=== PATIENT | female | born 1980 | race Caucasian/White ===

== ENCOUNTER → 2016-05-25 | Outpatient (CLI) | payer OTHER ==
--- NOTE | 2016-05-25 10:05 | CT ---
EXAMINATION TYPE: CT sinus wo con DATE OF EXAM: 05/25/2016 9:44 AM COMPARISON: NONE HISTORY: sinus congestion CT DLP: 610.[address] of the paranasal sinuses was performed in the axial and coronal planes. Bone and soft tissue settings are submitted. The paranasal sinuses demonstrate normal aeration and development. The paranasal sinuses are free of mucosal thickening or air fluid level. The osteal meatal units are patent bilaterally. The nasal septum is deviated from left to right. No bony destructive changes are seen within the field of view. IMPRESSION: Nasal septal deviation.
== END | disposition home or self-care (01) ==
LOC: RADCTMAIN 09:24
PROVIDERS: ATTEND Otolaryngology
DX: J34.2 Deviated nasal septum (principal); S09.93XA Unspecified injury of face, initial encounter; J32.9 Chronic sinusitis, unspecified
CPT/HCPCS: 70486

== ENCOUNTER → 2016-06-15 | Outpatient (CLI) | payer OTHER ==
--- NOTE | 2016-06-15 10:54 | USB ---
Reason for exam: additional evaluation requested from prior study. History: Family history of breast cancer in paternal cousin at age 45. Physical Findings: Nurse Summary: bilateral nipples inverted (nurse kp). US Breast BILAT Right breast ultrasound includes all four quadrants, the retroareolar region and axilla. Finding demonstrates no cystic or solid lesion seen. Left breast ultrasound includes all four quadrants, the retroareolar region and axilla. Finding demonstrates no cystic or solid lesion seen. These results were verbally communicated with the patient and result sheet given to the patient on 06/15/16. ASSESSMENT: Negative, BI-RAD 1 RECOMMENDATION: Routine screening mammogram of both breasts at age 40. (unless clinical indication to start sooner) Manage patient on a clinical basis (bilateral breast pain).
== END ==
LOC: RADUSWWP 09:42
PROVIDERS: ATTEND Surgery
DX: R92.8 Other abnormal and inconclusive findings on diagnostic imaging of breast (principal)

== ENCOUNTER 2016-07-23 11:03 | Day surgery (SDC) | payer OTHER ==
[2016-07-17 15:00] VITALS: BMI 24.3
[~2016-07-23 11:03] MED LIST: ACETAMINOPHEN TAB 500 MG TAB PO ONE; DEXAMETHASONE SOD PHOSPHATE 10 MG/ML 1 ML VIAL IV ONE; DEXAMETHASONE SOD PHOSPHATE 4 MG/ML 1 ML VIAL IV ONE; FAMOTIDINE 20 MG/2 ML VIAL IV ONE; HYDROmorphone 1 MG/ML 1 ML SYRINGE IVP PRN; LACTATED RINGERS 1,000 ML IV SCH; LIDOCAINE 1% 20 ML VIAL (10MG/ML) FOR IV START INTRADERMA PRN; MIDAZOLAM 2 MG/2 ML VIAL IV PRN; ONDANSETRON 4 MG/2 ML VIAL IVP ONE; SCOPOLAMINE 1.5MG/72HR PATCH TRANSDERM ONE; ceFAZolin 2 GM in SODIUM CHLORIDE 0.9% 100 ML IVPB ONE
[2016-07-23] MEDS: OXYMETAZOLINE 0.05% NASL SPRAY 15 ML NASAL ONE ×5 (11:30→11:50)
[2016-07-23] MEDS ORDERED: LACTATED RINGERS 1,000 ML IV ONE ×3 (11:35→17:02)
[2016-07-23] MEDS ORDERED: OXYMETAZOLINE 0.05% NASL SPRAY 15 ML ONE (13:59)
[2016-07-23] MEDS ORDERED: SUCCINYLCHOLINE CHLORIDE 100 MG/5 ML SYR IV ONE (14:28)
[2016-07-23] MEDS ORDERED: MORPHINE SULFATE 10 MG/ML SYRINGE ONE (14:28)
[2016-07-23] MEDS ORDERED: LIDOCAINE 1% INJ 10MG/ML (20 ML MDV) ONE (14:28)
[2016-07-23] MEDS ORDERED: ROCURONIUM BROMIDE 10 MG/ML 10 ML VIAL IV ONE (14:28)
[2016-07-23] MEDS ORDERED: PROPOFOL 10 MG/ML 20 ML VIAL IV ONE (14:28)
[2016-07-23] MEDS ORDERED: MIDAZOLAM 2 MG/2 ML VIAL ONE (14:28)
[2016-07-23] MEDS ORDERED: fentaNYL (PF) 50 MCG/ML 2 ML AMP ONE (14:28)
[2016-07-23] MEDS ORDERED: BACITRACIN 500 UNIT/GM OINT 28.4 GM TUBE TOPICAL ONE (15:09)
[2016-07-23] MEDS ORDERED: LIDOCAINE 1%-EPI 1:100,000 20 ML VIAL SQ ONE (15:09)
[2016-07-23] MEDS ORDERED: BUPIVACAIN-EPI 0.5%-1:200,000 30 ML VIAL SQ ONE (15:10)
[2016-07-23] MEDS ORDERED: EPINEPHrine 1 MG/ML (MDV) 30 ML VIAL IRRIGATION ONE (15:10)
[2016-07-23] MEDS ORDERED: FLUORESCEIN STRIPS 1 MG STRIP MISCELLANE ONE (15:10)
[2016-07-23] MEDS ORDERED: METOCLOPRAMIDE 5 MG/ML 2 ML VIAL IVP ONE (17:15)
[2016-07-23 17:28] VITALS: TEMP 97.8
[2016-07-23] MEDS ORDERED: ONDANSETRON 4 MG/2 ML VIAL IVP ONE (17:31)
--- NOTE | 2016-07-23 17:41 | P.OP ---
Preoperative Diagnosis: Postoperative Diagnosis: Procedure(s) Performed: Implants: Indications for Procedure: This patient has a history of a nasal bone fracture that she sustained when a tree branch hit her in the face while horseback riding years ago. Was never corrected and she's had chronic nasal congestion for many years she has a large dorsal hump and a deviation to the left. She was found have a polyp or cyst of the left frontal sinus and has been having issues with chronic sinusitis. After long discussion she elected to proceed forward with this septoplasty rhinoplasty turbinate reduction for better breathing and a frontal sinusotomy with removal of a left frontal sinus polyp. Operative Findings: Patient had a large dorsal hump callus formation from her fractured left nasal deviation and a right septal deviation that was obstructive large obstructive inferior turbinates and blockage of the frontal sinuses with polyp formation. Description of Procedure: This patient was taken to the operative room and placed in the supine position. A general inhalation anesthetic was administered to the patient by the department of anesthesia with a functioning IV line in place. The patient was monitored throughout the entire case by the department of anesthesia. The eyes were taped shut for protection. The patient was placed in a slight reverse Trendelenburg position. The patient had previously utilize Afrin nasal spray preoperatively. The nose was evaluated and the septum lateral nasal wall and inferior turbinates were injected with lidocaine 1% with epinephrine 1 100,000 bilaterally. Approximately 10 minutes were allowed wait for full vasoconstrictive effects to take place. At this point a caudal incision was made over the caudal portion of the left septum down to the mucoperichondrium. A mucoperichondrial flap was elevated on the left side and dissection was carried with use of tunnels posteriorly. We then made a crossover incision through the cartilage to the contralateral side and for the mucoperichondrial flap development was performed to the extent of visualization on the contralateral side. After the cartilage was freed with use of several crosshatching incisions and removal of some redundant strips of septal cartilage, the septum was straightened and placed back in the midline. The septum was sutured fixated to the vomerian groove. Excellent straightening occurred and the septum was visibly straight. Incision was closed with a 40 rapid Vicryl. We utilized a running nonlocking fashion for closure of the incision. A quilting stitch was used to reapproximate the septal flaps with use of a 40 rapid Vicryl. Intranasal splints were inserted and fixated at the end of the case. We utilized Vasquez nasal splints. There will be removed and the patient returns to the office. Attention was then paid to the inferior turbinates. The bilateral inferior turbinates were hypertrophic and obstructive. We entered the anterior portion of the inferior turbinates with use of a microdebrider. We remove bone and submucosal elements with use of a microdebrider bilaterally. The inferior turbinates underwent a submucosal resection with removal of submucosal tissue and bone. We obtained a much better and normal in size for breathing. The inferior turbinates were then outfractured and compressed with a MathZee nasal elevator. Excellent airway was obtained and was symmetric bilaterally. No bleeding was encountered. Attention was paid to the frontal sinuses where we inserted the endoscopic sinus balloon for dilatation on the left side. Nasal frontal duct was dilated on the left side we then entered the frontal sinus and found polypoid material which we removed. We explored the left frontal sinus and we removed diseased tissue and polyps from the left frontal sinus. Xerogel was inserted. Attention was then paid to the external nose which was previously prepped and draped in usual fashion. We injected the nose around the periphery septum columella margin with lidocaine 1% with epinephrine 1 100,000 and Marcaine. We made a stairstep columellar incision with a 15 blade and extended this along the marginal rim incision. The skin was elevated off the nasal tip and then off the nasal dorsum. The nasal dorsum and nasal tip was exposed. We then with use of a cold handle rasp rasped down the very large nasal dorsal hump. This was callus formation that we noted. The nasal dorsum was contoured were normal anesthetic side profile with removal of both bone and dorsal cartilage and callus. This was agreed to before the surgery. Prior to surgery we did go over the change in appearance and the removal of the dorsal callus and cartilage to bring this back to a pre-fracture state. After the dorsum was recontoured and the callous was removed medial and lateral osteotomies were performed. The nasal bones were infractured and the opening over the nasal dorsum i.e. the box nose deformity was corrected. The nose was then taped and casted in usual fashion. Again we have intranasal splints inserted. The patient tolerated this procedure well and follow-up will be in the office in 1 week. To summarize the septum was straightened this turbinates underwent a outfracture compression and submucosal resection. We did a open rhinoplasty with both medial and lateral osteotomies and removal of dorsal hump with callus formation. We then opened up the left frontal sinus explored the left frontal sinus and removed polyps. The patient tolerated this well and follow-up will be in the office in one week the patient is to contact me if any from should arise.
[2016-07-23 18:19] VITALS: RESP 18
[2016-07-23 18:43] VITALS: BP 112/72; PULSE 80
--- NOTE | 2016-08-20 09:56 | OP ---
DATE OF SERVICE: 07/23/2016 OPERATIVE NOTE ADDENDUM: PREOPERATIVE DIAGNOSES: 1. Deviated nasal septum. 2. Hypertrophy of the bilateral nasal turbinates with obstruction. 3. Chronic sinusitis. 4. External nasal deformity acquired. 5. Left frontal sinus polyp. POSTOPERATIVE DIAGNOSES: 1. Deviated nasal septum. 2. Hypertrophy of the bilateral nasal turbinates with obstruction. 3. Chronic sinusitis. 4. External nasal deformity acquired. 5. Left frontal sinus polyp. OPERATION: 1. Septoplasty. 2. Bilateral outfracture, compression and submucosal resection of the inferior turbinates. 3. Frontal sinusotomy with polypectomy. 4. Open rhinoplasty. ANESTHESIA: General. ESTIMATED BLOOD LOSS: Minimum. SPECIMENS REMOVED: COMPLICATIONS: None. CONDITION: Excellent.
== END 2016-07-23 18:48 | disposition home or self-care (01) ==
LOC: OR 11:03
PROVIDERS: ATTEND Otolaryngology
DX: J34.2 Deviated nasal septum (principal); J34.3 Hypertrophy of nasal turbinates; M95.0 Acquired deformity of nose; J32.9 Chronic sinusitis, unspecified; J33.8 Other polyp of sinus
CPT/HCPCS: 81025; 88305; 88300; 30520; 30140; 31276; 30400; J0171; J2250; J1100; J2765; J2270; J0690; J2405; J2001; J3010; J1170; J0330; J2704

== ENCOUNTER → 2017-07-02 | Outpatient (CLI) | payer OTHER ==
--- NOTE | 2017-07-02 07:25 | MR ---
EXAMINATION TYPE: MR shoulder LT wo con DATE OF EXAM: 07/02/2017 7:22 AM COMPARISON: NONE HISTORY: Pain in left shoulder TECHNIQUE: Multiplanar multispin echo imaging of the left shoulder was performed. FINDINGS: Rotator cuff : Mild thickening of the supraspinatus tendon may reflect chronic tendinopathy. There is no complete or bursal/articular sided partial rotator cuff tear. The subscapularis constituent of th e rotator cuff is intact. Bursa: No bursal effusion or thickening is seen. Musculature: There is no muscular tear, contusion, or atrophy. Acromioclavicular joint : There are mild degenerative changes of the acromioclavicular joint. There is no anterior or lateral acromial downsloping. Osseous structures : There are no fractures or regions of abnormal bone marrow signal intensity. Long biceps tendon : The biceps tendon is normally situated within the bicipital groove. No complete or partial biceps tendon tear is present. Glenohumeral Joint fluid : There is no glenohumeral joint effusion. Cartilage and Bone : No focal hyaline cartilage defects are noted. No Hill-Sachs, reverse Hill-Sachs, or bony Bankart lesions are seen. Labrum : There are no SLAP or soft tissue Bankart lesions. No paralabral cysts are seen. OTHER FINDINGS : none IMPRESSION: 1. Mild chronic tendinopathy supraspinatus tendon without evidence for partial or complete tear.
== END | disposition home or self-care (01) ==
LOC: RADMRIMAIN 06:44
PROVIDERS: ATTEND Family Medicine
DX: M75.82 Other shoulder lesions, left shoulder (principal); M25.512 Pain in left shoulder

== ENCOUNTER → 2019-04-04 | Outpatient (CLI) | payer OTHER ==
[2019-04-04 09:52] LABS: Basophils % (A) 1 %; Eosinophils # (A) 0.1 k/uL (0-0.7); Eosinophils % (A) 2 %; HCT 40.7 % (34.0-46.0); HGB 13.2 gm/dL (11.4-16.0); Lymphocytes # (A) 1.8 k/uL (1.0-4.8); Lymphocytes % (A) 42 %; MCH 30.1 pg (25.0-35.0); MCHC 32.3 g/dL (31.0-37.0); MCV 93.3 fL (80.0-100.0); Mean Platelet Volume 7.8; Monocytes # (A) 0.2 k/uL (0-1.0); Monocytes % (A) 6 %; Neutrophils # (A) 2.1 k/uL (1.3-7.7); Neutrophils % (A) 47 %; Platelet Count 218 k/uL (150-450); RBC 4.37 m/uL (3.80-5.40); RDW 12.1 % (11.5-15.5); WBC 4.3 k/uL (3.8-10.6)
[2019-04-04 12:34] LABS: Erythrocyte Sedimentation Rate 6 mm/hr (0-20)
[2019-04-04 16:58] LABS: LDL Cholesterol, Direct 91.3 mg/dL (0.0-129.0)
[2019-04-04 18:28] LABS: African American GFR (CKD) 127.4 (60.0-200.0); Albumin 4.4 g/dL (3.80-4.90); Albumin/Globulin Ratio 2.1 (1.60-3.17); Anion Gap 10.6 mmol/L (4.00-12.00); BUN/Creat Ratio 17.14 Ratio (12.00-20.00); Calcium 9.3 mg/dL (8.7-10.3); Carbon Dioxide 25.4 mmol/L (21.6-31.8); Chol/HDL Ratio 2.18; Globulin 2.1 g/dL (1.6-3.3); Non-African American GFR(CKD) 109.9 (60.0-200.0); Potassium 4.3 mmol/L (3.5-5.5); Total Bilirubin 0.7 mg/dL (0.2-1.2); Total Protein 6.5 g/dL (6.2-8.2)
[2019-04-04 18:35] LABS: T4, Free (Free Thyroxine) 1.2 ng/dL (0.80-1.80)
== END | disposition home or self-care (01) ==
LOC: LABWHC1 08:41
PROVIDERS: ATTEND Family Medicine
DX: L65.9 Nonscarring hair loss, unspecified (principal); M25.50 Pain in unspecified joint
CPT/HCPCS: 36415; 80053; 80061; 82607; 83721; 84439; 84443; 85025; 85652; 86038

== ENCOUNTER → 2022-07-10 | Outpatient (CLI) | payer BC ==
--- NOTE | 2022-07-13 19:02 | MM ---
Reason for Exam: Screening (asymptomatic). Last mammogram was performed 7 year(s) and 0 month(s) ago. Patient History: Menarche at age 13. First Full-Term at age 21. Premenopausal. Paternal cousin had breast cancer, age 45. Risk Values: Celia 5 year model risk: 0.5%. NCI Lifetime model risk: 9.0%. Prior Study Comparison: 07/12/2015 Bilateral Diagnostic Mammogram, [facility]. Tissue Density: The breast tissue is heterogeneously dense. This may lower the sensitivity of mammography. Findings: Analyzed By CAD. There is no suspicious group of microcalcifications or new suspicious mass in either breast. Overall Assessment: Benign, BI-RAD 2 Management: Screening Mammogram of both breasts in 1 year. . Patient should continue monthly self-breast exams. A clinical breast exam by your physician is recommended on an annual basis. This exam should not preclude additional follow-up of suspicious palpable abnormalities. Note on Celia scores and lifetime risk: 1. A Celia score greater than 3% is considered moderate risk. If this is the case, consider specialist referral to assess eligibility for a risk reducing agent. 2. If overall lifetime risk for the development of breast cancer is 20% or higher, the patient may qualify for future screening with alternating mammogram and breast MRI. Electronically signed and approved by: Jyoti Farris M.D. Radiologist
== END | disposition home or self-care (01) ==
LOC: RADMAMWWP 09:22
PROVIDERS: ATTEND Obstetrics & Gynecology
DX: Z12.31 Encounter for screening mammogram for malignant neoplasm of breast (principal); Z80.3 Family history of malignant neoplasm of breast
CPT/HCPCS: 77063; 77067

== ENCOUNTER → 2023-02-01 | Outpatient (CLI) | payer BC ==
[2023-02-01 15:47] LABS: Blood Urea Nitrogen 8.4 mg/dL (9.0-27.0); Glucose 91 mg/dL (70-110)
[2023-02-01 15:48] LABS: Calcium 9.5 mg/dL (8.7-10.3); Carbon Dioxide 25.1 mmol/L (21.6-31.8); Chloride 105 mmol/L (96-109); Potassium 4.2 mmol/L (3.5-5.5); Sodium 143 mmol/L (135-145)
[2023-02-01 16:35] LABS: Basophils # (A) 0.04 X 10*3/uL (0.00-0.10); Basophils % (A) 0.7 %; Eosinophils # (A) 0.07 X 10*3/uL (0.04-0.35); Eosinophils % (A) 1.3 %; HCT 38.8 % (37.2-46.3); HGB 12.8 g/dL (12.0-15.0); Lymphocytes # (A) 1.87 X 10*3/uL (0.90-5.00); MCH 30.8 pg (27.0-32.0); MCV 93.3 FL (80.0-97.0); Mean Platelet Volume 10.6 FL (9.5-12.2); Monocytes # (A) 0.55 X 10*3/uL (0.20-1.00); Monocytes % (A) 10.3 %; NRBC Per 100 WBC 0 X 10*3/uL (0.00-0.01); Neutrophils % (A) 52.5 %; Platelet Count 225 X 10*3/uL (140-440); RBC 4.16 X 10*6/uL (4.10-5.20); RDW 12.5 % (11.5-14.5); WBC 5.34 X 10*3/uL (4.50-10.00)
== END | disposition home or self-care (01) ==
LOC: LABPAT 09:34
PROVIDERS: ATTEND Obstetrics & Gynecology
DX: Z01.812 Encounter for preprocedural laboratory examination (principal)
CPT/HCPCS: 80048; 85025; 86850; 86900; 86901

== ENCOUNTER 2023-02-08 05:33 | Day surgery (SDC) | payer BC ==
[2023-02-04 10:37] VITALS: BMI 23.5
--- NOTE | 2023-02-07 09:06 | P.HPOB ---
History of Present Illness H&P Date: 02/07/23 Chief Complaint: Dysmenorrhea, post endometrial ablation syndrome This is a 42 y.o. female, 3, para 2, who presents for total laparoscopic hysterectomy with bilateral salpingectomy and diagnostic cystoscopy, possible total abdominal hysterectomy with bilateral salpingo-ooporectomy due to dysmenorrhea and post endometrial ablation syndrome. She's not bleeding heavy, but she's bleeding almost all the time through the month and it's painful. This has been going on for a few years now. Pelvic ultrasound showed uterus measuring 9.2 x 5.3 x 3.9 cm with a split endometrium up to 5 mm on each side. Simple cysts noted on both ovaries. OB Hx: . History of 2 vaginal deliveries and 1 miscarriage. 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 She had a tubal ligation. Social Hx: . 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 Review of Systems Constitutional: Denies chills, Denies fever Eyes: denies blurred vision, denies pain Ears, nose, mouth and throat: Denies headache, Denies sore throat Cardiovascular: Denies chest pain, Denies shortness of breath Respiratory: Denies cough Gastrointestinal: Reports abdominal pain, Reports bloating, Reports change in bowel habits, Denies diarrhea, Denies nausea, Denies vomiting Genitourinary: Reports abnormal vaginal bleeding, Reports dysmenorrhea, Reports pelvic pain Menstruation: Reports menses 8 or > days, Reports menses variable, Denies period heavy Musculoskeletal: Reports low back pain, Reports myalgias Integumentary: Denies pruritus, Denies rash Neurological: Denies numbness, Denies weakness Psychiatric: Reports irritability, Denies anxiety, Denies depression Endocrine: Denies fatigue, Denies weight change Past Medical History Past Medical History: Osteoarthritis (OA) Additional Past Medical History / Comment(s): states painful & frequent menstrual periods. History of Any Multi-Drug Resistant Organisms: None Reported Past Surgical History: Tubal Ligation, Uterine Ablation Additional Past Surgical History / Comment(s): D & C, nasal surgery for deviated septum. wisdom teeth removed with anesthesia Past Anesthesia/Blood Transfusion Reactions: No Reported Reaction Past Psychological History: No Psychological Hx Reported Smoking Status: Former smoker Past Alcohol Use History: Occasional Additional Past Alcohol Use History / Comment(s): QUIT SMOKING 2006. STATES ALCOHOL ON WEEKENDS Past Drug Use History: None Reported - Past Family History Mother Family Medical History: Coronary Artery Disease (CAD) Medications and Allergies Home Medications Medication Instructions Recorded Confirmed Type No Known Home Medications 02/04/23 02/08/23 History Allergies Allergy/AdvReac Type Severity Reaction Status Date / Time No Known Allergies Allergy Verified 02/08/23 05:56 Exam Osteopathic Statement: *. No significant issues noted on an osteopathic structural exam other than those noted in the History and Physical/Consult. Gen: Well-developed, well-nourished female in no acute distress HEENT: within normal limits Heart: regular rate and rhythm Lungs: clear to auscultation bilaterally Abdomen: soft, non-tender Pelvic: uterus mid-position, non-tender, no adnexal masses or tenderness Extremities: neg. Peggy's Assessment and Plan (1) Dysmenorrhea Current Visit: No Status: Acute Code(s): N94.6 - DYSMENORRHEA, UNSPECIFIED SNOMED Code(s): 165486170 (2) Post endometrial ablation syndrome Current Visit: No Status: Acute Code(s): N99.85 - POST ENDOMETRIAL ABLATION SYNDROME SNOMED Code(s): 205751311 Plan: Proceed with total laparoscopic hysterectomy with bilateral salpingectomy and diagnostic cystoscopy, possible total abdominal hysterectomy with bilateral salpingooophorectomy. I have discussed the risks, benefits, and alternative therapies for the above- mentioned procedure and for both sedation/anesthesia as well as necessary blood products administration, if indicated, as they pertain to this patient. The patient has indicated her understanding and acceptance of the risks and procedures discussed.
[2023-02-08] MEDS ORDERED: DEXAMETHASONE SOD PHOSPHATE 4 MG/ML 1 ML VIAL IV ONE (05:48)
[2023-02-08] MEDS ORDERED: LACTATED RINGERS 1,000 ML IV SCH (05:48)
[2023-02-08] MEDS ORDERED: ONDANSETRON 4 MG/2 ML VIAL IVP ONE (05:48)
[2023-02-08] MEDS ORDERED: SCOPOLAMINE 1 MG/72 HR PATCH TRANSDERM ONE (05:48)
[2023-02-08] MEDS ORDERED: droPERidol 5 MG/2 ML VIAL IVP ONE (05:48)
[2023-02-08] MEDS ORDERED: HYDROmorphone 0.5 MG/0.5 ML SYRINGE IVP PRN (05:48)
[2023-02-08] MEDS ORDERED: LIDOCAINE 1% (10MG/ML) FOR IV START INTRADERMA PRN (05:48)
[2023-02-08] MEDS ORDERED: MIDAZOLAM 2 MG/2 ML VIAL IVP ONE (06:41)
[2023-02-08] MEDS ORDERED: fentaNYL (PF) 50 MCG/ML 2 ML AMP IVP ONE (06:41)
[2023-02-08] MEDS ORDERED: NALOXONE 0.4 MG/ML 1 ML VIAL IV PRN (06:56)
[2023-02-08] MEDS ORDERED: KETOROLAC 15 MG/ML 1 ML VIAL ONE (07:13)
[2023-02-08] MEDS ORDERED: SUCCINYLCHOLINE CHLORIDE 200 MG/10 ML VIAL IV ONE (07:13)
[2023-02-08] MEDS ORDERED: fentaNYL (PF) 50 MCG/ML 2 ML AMP ONE (07:13)
[2023-02-08] MEDS ORDERED: ACETAMINOPHEN IV (For NPO) 1,000 MG/100 ML VIAL ONE (07:13)
[2023-02-08] MEDS ORDERED: NEOSTIGMINE 1 MG/ML 10 ML VIAL ONE (07:13)
[2023-02-08] MEDS ORDERED: LIDOCAINE 1% INJ 10MG/ML (20 ML MDV) ONE (07:13)
[2023-02-08] MEDS ORDERED: GLYCOPYRROLATE 0.2 MG/ML 2 ML VIAL ONE (07:13)
[2023-02-08] MEDS ORDERED: diphenhydrAMINE 50 MG/ML 1 ML VIAL ONE (07:13)
[2023-02-08] MEDS ORDERED: MIDAZOLAM 2 MG/2 ML VIAL ONE (07:13)
[2023-02-08] MEDS ORDERED: MORPHINE SULFATE (PF) 0.3 MG/0.3 ML SYR ONE (07:13)
[2023-02-08] MEDS ORDERED: HYDROmorphone (PF) 1 MG/ML ONE (07:13)
[2023-02-08] MEDS ORDERED: ROCURONIUM 10 MG/ML (5 ML VIAL) IV ONE (07:13)
[2023-02-08] MEDS ORDERED: PROPOFOL 10 MG/ML 20 ML VIAL IV ONE (07:13)
--- NOTE | 2023-02-08 08:36 | P.ANPRN ---
Procedure Note - Anesthesia - Epidural/Spinal Spinal Time Out Performed: Yes Date of Procedure: 02/08/23 Procedure Start Time: 06:41 Procedure Stop Time: 06:52 Location of Patient: PreOp Indication: Acute Post-Operative Pain, Analgesia, Requested by Surgeon Sedation Type: Sedate with meaningful contact maintained Preparation: Sterile Prep Number of Attempts: 1 Position: Sitting Catheter: None Needle Guage: 25 Injectate: Duramorph 300mics+fentanyl 25 nics Blood Aspirated: No Pain Paresthesia on Injection Noted: No Events: Uneventful and Well Tolerated
[2023-02-08] MEDS ORDERED: BUPIVACAINE (PF) 0.25% 30 ML VIAL SQ ONE (08:40)
[2023-02-08] MEDS ORDERED: IV FLUID CONTINUATION 1,000 ML IV ONE ×2 (08:41)
--- NOTE | 2023-02-08 08:46 | P.OP ---
Date of Procedure: 02/08/23 Preoperative Diagnosis: Dysmenorrhea Post endometrial ablation syndrome Postoperative Diagnosis: Same Procedure(s) Performed: Total laparoscopic hysterectomy with bilateral salpingectomy and diagnostic cystoscopy Anesthesia: GENEVIEVE Surgeon: Junie Diaz Napper Grinder #1: Malissa Saleem Estimated Blood Loss (ml): 75 Pathology: other (Uterus with cervix and bilateral fallopian tubes) Condition: stable Disposition: floor Indications for Procedure: This is a 42 y.o. female, 3, para 2, who presents for total laparoscopic hysterectomy with bilateral salpingectomy and diagnostic cystoscopy, possible total abdominal hysterectomy with bilateral salpingo-ooporectomy due to dysmenorrhea and post endometrial ablation syndrome. She's not bleeding heavy, but she's bleeding almost all the time through the month and it's painful. This has been going on for a few years now. Pelvic ultrasound showed uterus measuring 9.2 x 5.3 x 3.9 cm with a split endometrium up to 5 mm on each side. Simple cysts noted on both ovaries. Operative Findings: Uterus is mid position with normal tubes and ovaries bilaterally. Appendix is visualized and appears normal. Description of Procedure: The patient was taken to the operating room where she is placed in the dorsal lithotomy position on a pink pad. Her arms are tucked at her sides and cushioned. When she is correctly position, anesthesia was given. Tilt test was performed. She is prepped and draped in the normal sterile fashion. Next a weighted speculum was placed in the patient's vagina. A right angle retractor is used to visualize the cervix. The anterior lip of the cervix is grasped with a single-tooth tenaculum. Uterus is sounded to 8 cm. Cervix is gently dilated with Hogan dilators. Next the cervix is measured at 4 cm. 0 Vicryl stitches are placed at the 3 and 9:00 positions on the cervix and held. Next the HUMI manipulator is placed within the cervix, the balloon is inflated, and then the 0 Vicryl sutures are brought through the HUMI and then the cervical cup is pressed against the cervix until the click is heard. Uterus is anteverted and marked on the abdomen. Next the bladder Woods catheter is inserted. Gloves are changed and attention is turned to the abdomen. An incision is made above the umbilicus approximately 8 cm above the top of the uterus and then a 5 mm disposable bladeless trocar is inserted under direct visualization with low flow. Once inside high flow is turned on and intra-abdominal contents were inspected. Another incision is made on the right side approximately 8 cm lateral to the umbilicus in the midline and a 8 mm da Faraz port is placed under direct visualization. The same procedure is carried out on the left side. Next an legal administrative assistant port is placed approximately 6 cm superior to the left da Faraz port and lateral to the camera port using a 12 mm trocar under direct visualization. Next the 5 mm camera sleeve is replaced with an 8 mm da Faraz port. Next the da Faraz robot is docked to the patient from her right side. The ports are attached to the arms. Smoke evacuator is also attached. The camera is inserted and then a monopolar scissors is placed through the right port and a vessel sealer was placed through the left port under direct visualization. Energy is attached to both ports. At this time I broke scrub to go to the robot console. Evidence of previous tubal ligation was noted. The end of the left fallopian tube is grasped by the legal administrative assistant and the vessel sealer is used to cauterize and cut the mesosalpinx. The end of fallopian tube was then removed through the legal administrative assistant port. Next the round ligament on the left is grasped with the vessel sealer and cauterized and cut. The broad ligament was then opened up posteriorly with monopolar cautery. Uterine arteries are then grasped with the vessel sealer, cauterized, and cut. Monopolar scissors were then used to carefully dissect the bladder reflection and the bladder flap is created. Next attention is turned to the right side of the pelvis. The end of the right fallopian tube is grasped and the vessel sealer is used to grasp the right mesosalpinx , cauterize, and then cut. This was carried out on the remainder of the tube and then the tube is removed from the field. The round ligament was also grasped with the vessel sealer, cauterized and then cut. The posterior leaf of the broad ligament is then opened up to the uterosacral area. Uterine arteries are grasped with vessel sealer and then cauterized and cut. Next the uterus is retroverted and the balloon is inflated. Monopolar scissors are used to cut through the vaginal cuff along the HUMI cuff anteriorly. This is carried around to the left side again using monopolar and bipolar energy. The uterus is anteverted and then the posterior cuff is cut along the HUMI cuff using monopolar scissors. The remainder of the right side of the cuff is removed with monopolar and bipolar energy. Once the uterus is freed it is removed through the vagina. Monopolar and bipolar energy are used to cauterize any small bleeders left behind. Next the arms are switched out to the right arm with Forest suture cut and the left arm with a Lucas grasper. An O-Stratafix suture is then used to suture from the right side of the cuff across to the left side in a running fashion after securing the suture with the small loop on the end. Once the left side of the cuff was reached, a couple more sutures were placed going towards the right side to secure the suture. Suture was then cut and removed from the field. Irrigation was carried out. Good hemostasis was noted. Next the instruments are removed from the arms. I regowned and cystoscopy was then performed. Both ureteral orifices are visualized with flow. Cystoscopy was then completed and Woods catheter was replaced. Clear urine was noted. All sponge and needle counts are correct. Patient is taken to recovery room in stable condition.
[2023-02-08] MEDS ORDERED: METOCLOPRAMIDE 5 MG/ML 2 ML VIAL IVP PRN (09:57)
[2023-02-08] MEDS ORDERED: ONDANSETRON 4 MG/2 ML VIAL IVP PRN (09:57)
[2023-02-08] MEDS ORDERED: ZOLPIDEM 5 MG TAB PO PRN (09:57)
[2023-02-08] MEDS ORDERED: ACETAMINOPHEN IV (For NPO) 1,000 MG in EMPTY BAG 1 BAG IVPB ONE (09:57)
[2023-02-08] MEDS ORDERED: SIMETHICONE 80 MG CHEWABLE PO PRN (09:57)
[2023-02-08] MEDS ORDERED: IBUPROFEN 600 MG TAB PO PRN (09:57)
[2023-02-08] MEDS: diphenhydrAMINE 50 MG/ML 1 ML VIAL IVP PRN ×2 (11:39→18:05)
[2023-02-08] MEDS: KETOROLAC 15 MG/ML 1 ML VIAL IVP PRN ×2 (11:42→20:38)
[2023-02-08] MEDS: SENNOSIDES-DOCUSATE SODIUM 1 EACH TAB PO SCH (20:38)
[2023-02-09] MEDS: diphenhydrAMINE 50 MG/ML 1 ML VIAL IVP PRN (00:42)
[2023-02-09] MEDS ORDERED: ACETAMINOPHEN TAB 325 MG TAB PO PRN (07:18)
[2023-02-09] MEDS: SENNOSIDES-DOCUSATE SODIUM 1 EACH TAB PO SCH ×2 (07:18→08:00)
[2023-02-09 07:22] LABS: Basophils % (A) 0 %; Eosinophils # (A) 0.1 k/uL (0-0.7); Eosinophils % (A) 1 %; HCT 35.6 % (34.0-46.0); HGB 11.8 gm/dL (11.4-16.0); Lymphocytes # (A) 3.2 k/uL (1.0-4.8); Lymphocytes % (A) 41 %; MCH 31.4 pg (25.0-35.0); MCHC 33.1 g/dL (31.0-37.0); MCV 94.8 fL (80.0-100.0); Mean Platelet Volume 8.1; Monocytes # (A) 0.4 k/uL (0-1.0); Monocytes % (A) 5 %; Neutrophils % (A) 51 %; Platelet Count 217 k/uL (150-450); RBC 3.76 m/uL (3.80-5.40); RDW 12.4 % (11.5-15.5); WBC 7.9 k/uL (3.8-10.6)
--- NOTE | 2023-02-09 08:36 | P.DS ---
Providers Date of admission: 02/08/2023 Expected date of discharge: 02/09/23 Attending physician: Junie Diaz Primary care physician: Franca Dinero - Discharge Diagnosis(es) (1) Dysmenorrhea Current Visit: No Status: Acute (2) Post endometrial ablation syndrome Current Visit: No Status: Acute Hospital Course: This is a 42-year-old female presented for total laparoscopic hysterectomy with bilateral salpingectomy and diagnostic cystoscopy on 02/08/2023. She underwent the above-noted procedure on 02/08/2023. Postoperatively she was doing well until this morning when she got behind on her pain medication. She just took ibuprofen recently and is waiting for it to kick in. She is passing flatus but no bowel movement yet. She is ambulating. She has been urinating without difficulty. She denies any bleeding vaginally. Vital signs are stable. Abdomen is soft with positive bowel sounds 4. Dressings on incisions are dry. Extremities show negative Homans. Impression is status post total laparoscopic hysterectomy with bilateral salpingectomy with da Faraz and diagnostic cystoscopy postoperative day #1. Plan is to discharge home today. Routine postoperative instructions are given. She will be given a prescription for ibuprofen and a few oxycodone 5 mg every 6 hours as needed. She has been counseled regarding opioid use and has signed a consent form. She is advised to follow up in the office in approximately 1 week for a postoperative check. She is advised to call the office if she has any further questions or concerns prior to her appointment time. She may shower but no tub baths for at least 1 week. No heavy lifting. Procedures: Total laparoscopic hysterectomy with bilateral salpingectomy with da Faraz and diagnostic cystoscopy on 02/08/2023 Patient Condition at Discharge: Stable Plan - Discharge Summary Discharge Rx Participant: Yes New Discharge Prescriptions: New oxyCODONE HCL [OxyIR] 5 mg PO Q6HR PRN #12 tab PRN Reason: Pain Ibuprofen [Motrin] 600 mg PO Q6HR PRN #60 tab PRN Reason: Mild Discomfort Discharge Medication List Ibuprofen [Motrin] 600 mg PO Q6HR PRN #60 tab 02/09/23 [Rx] oxyCODONE HCL [OxyIR] 5 mg PO Q6HR PRN #12 tab 02/09/23 [Rx] Follow up Appointment(s)/Referral(s): Junie Diaz DO [Doctor of Osteopathic Medicine] - 1 Week Activity/Diet/Wound Care/Special Instructions: Activity as tolerated. Diet as tolerated. May shower, but no tub baths for 1 week. No intercourse for at least 6 weeks. No heavy lifting. Discharge Disposition: HOME SELF-CARE
[2023-02-09 09:25] VITALS: BP 109/66; PULSE 85; TEMP 98.9
[2023-02-09 10:41] VITALS: RESP 16
== END 2023-02-09 10:20 | disposition home or self-care (01) ==
LOC: OR 05:33 → 4FBP 09:02 → OR 02-09 10:20
PROVIDERS: ATTEND Obstetrics & Gynecology
DX: D25.1 Intramural leiomyoma of uterus (principal); G89.18 Other acute postprocedural pain; N99.85 Post endometrial ablation syndrome; M19.90 Unspecified osteoarthritis, unspecified site; F10.90 Alcohol use, unspecified, uncomplicated; Z98.890 Other specified postprocedural states; Z98.51 Tubal ligation status; Z87.891 Personal history of nicotine dependence; Z82.49 Family history of ischemic heart disease and other diseases of the circulatory system; Z79.899 Other long term (current) drug therapy
CPT/HCPCS: 58571; 64999; 81025; 85025; 88307; J2250; J0330; J1200 ×2; J1100; J2710; J0690; J2405; J2001; J2274; J3010; J1170 ×2; J0131; J1885; J2704; J0665